=== PATIENT | female | born 1960 | race Caucasian/White ===

== ENCOUNTER 2018-04-27 13:37 | Outpatient (CLI) | payer OTHER ==
--- NOTE | 2018-04-27 16:18 | MRI ---
MRI LUMBAR SPINE WITHOUT CONTRAST: HISTORY: Low back pain that radiates down the right hip for years. COMPARISON: None. TECHNIQUE: Multiplanar, multisequence MR images were obtained of the lumbar spine without contrast. FINDINGS: The vertebral bodies and intervertebral disks demonstrate normal height and alignment without fractur e or subluxation. No significant disk desiccation is seen. The conus medullaris terminates normally at L1. The prevertebral and paraspinal soft tissues are unremarkable. No significant posterior disk bulge or protrusion is seen throughout the lumbar spine. No posterior facet arthrosis is seen. No neural foraminal stenosis is seen. No central canal stenosis. IMPRESSION: No significant abnormality of the lumbar spine. POS: [facility]
== END 2018-04-27 13:38 | disposition home or self-care (01) ==
LOC: SCSMRI 13:37
PROVIDERS: ATTEND Family Medicine
DX: M54.5 Low back pain (principal); G89.29 Other chronic pain
CPT/HCPCS: 72148